=== PATIENT | male | born 1975 | race Caucasian/White ===

== ENCOUNTER 2016-06-05 15:57 | Inpatient (IN) | payer MEDICARE, OTHER ==
--- NOTE | ~2016-06-05 | HP ---
Unit #: [id number] #: [id number] Patient: RANDALL BURT [id number] [place] [address] [id number] I MR#: [id number] NAME: RANDALL BURT ROOM: P184 Age: 41 Sex: M Admission Date: 06/05/2016 : 1975 Attending Physician: Matt Tavera M.D. Admitting Physician: Matt Tavera M.D. Primary Care Physician: Primary Care Physician No HISTORY AND PHYSICAL HISTORY OF PRESENT ILLNESS Randall is a 41-year-old male admitted on 06/05/2016 for detox from alcohol, heroin and meth. PAST MEDICAL HISTORY Crohn's disease. PAST SURGICAL HISTORY 1. Fistula repair x3. 2. Colon resection x1. ALLERGIES No known drug allergies. SOCIAL HISTORY Smokes 1-1/2 packs of cigarettes daily. Drinks a pint of alcohol daily and uses heroin and meth daily. He is currently and living with his friend. FAMILY HISTORY Noncontributory. REVIEW OF SYSTEMS CONSTITUTIONAL: No fever or chills. HEENT: Denies any sore throat, ear pain or runny nose. CARDIOVASCULAR: Denies chest pain, irregular heart rhythm or palpitations. CHEST: Denies shortness of breath or cough. No hemoptysis. GASTROINTESTINAL: Denies nausea, vomiting, diarrhea or chronic constipation. ENDOCRINE: Denies history of increased thirst or urination. No recent significant weight loss or gain. GENITOURINARY: Denies dysuria, frequency, or hematuria. SKIN: Denies any rashes. HEMATOLOGIC: Denies history of increased bleeding or bruising. MUSCULOSKELETAL: Denies any hot, swollen joints. No generalized muscle pain. NEUROLOGIC: Denies problems with vision or speech. No frequent, severe headaches. No numbness, tingling or weakness in any extremities. Denies loss of bladder or bowel control. CURRENT MEDICATIONS Olanzapine. Unit #: [id number] #: [id number] Patient: RANDALL BURT PHYSICAL EXAMINATION GENERAL: Alert, oriented, in no acute distress. VITAL SIGNS: Blood pressure 103/72, heart rate 73, respirations 16. HEIGHT: 5 feet 11. WEIGHT: 178 pounds. SKIN: Warm and dry without rash or lesion. HEENT: Normocephalic. TMs not viewed. Oral and nasal passages clear. Conjunctivae clear. PERRLA. EOMs intact. NECK: Supple without lymphadenopathy or thyromegaly. HEART: Regular rate and rhythm without murmur. LUNGS: Clear. ABDOMEN: Soft, nontender, without masses or hepatosplenomegaly. : Not done. EXTREMITIES: No evidence of cyanosis, clubbing or edema. Moves all without focal deficit. NEUROLOGICAL: Grossly within normal limits. Cranial Nerves: II: Visual soriano are intact. III, IV AND : Extraocular movements are intact. Pupils are equal, round and reactive to light. V: Facial sensation is grossly normal. VII: Facial movements and expression are normal. VIII: Auditory acuity grossly intact. IX, X: Uvula is midline. Phonation is normal. XI: Patient shrugs shoulders and turns head normally. XII: Tongue protrudes in the midline. Sensory and Motor Function: Sensory and motor sensation is grossly normal. Motor: moves all extremities well. Coordination: Gait is normal. Deep Tendon Reflexes: Intact. IMPRESSION 1. Psychiatric admission. 2. Crohn's disease. RECOMMENDATIONS PSYCHIATRIC: Per psychiatrist. MEDICAL: No contraindications to participate in facility's activities. MEDICAL PROGNOSIS Good. MEDICAL CONDITION Stable. Dictated by... Sofia Taveras/fausto TD: 06/06/2016 15:13 JOB #: [id number] Unit #: [id number] #: [id number] Patient: RANDALL BURT HISTORY AND PHYSICAL Page 1 of 1 X NORMAN GRULLON APRN X HISTORY AND PHYSICAL
--- NOTE | ~2016-06-05 | DS ---
Unit #: [id number] #: [id number] [facility] [id number] [facility] [address] [place] [address] [id number] I MR#: [id number] NAME: RANDALL BURT ROOM: P174 Age: 41 Sex: M Admission Date: 06/05/2016 : 1975 Discharge Date: Attending Physician: Matt Tavera M.D. DISCHARGE SUMMARY IDENTIFYING DATA Mr. Burt is a 41-year-old single disabled white male, who is a resident of [place], [place], and is known to us from previous encounter, was self-referred to the hospital on a voluntary basis. DISCHARGE DIAGNOSES Psychiatric: Bipolar disorder, most recent episode depressed, recurrent, moderate, without psychotic features; alcohol dependence, moderate and acute withdrawals; opioid dependence, moderate and acute withdrawals; methamphetamine dependence, moderate. Medical: None. Stressors: Moderate psychosocial stressors. HISTORY OF PRESENT ILLNESS Please see initial psychiatric evaluation for details. PAST PSYCHIATRIC HISTORY Please see initial psychiatric evaluation for details. PAST MEDICAL HISTORY Please see initial psychiatric evaluation for details. HOSPITAL COURSE The patient was admitted to the adult chemical dependency and psychiatric unit at [facility] and was oriented to the hospital environment. Routine p.r.n. medications were initiated, and he was started back on his home medications including his Zyprexa 20 mg at bedtime and detox protocol for alcohol and opioids were initiated and he was closely monitored. He was taking the medications regularly and was tolerating them fairly well and was able to show a decent and therapeutic response with improvement in depression and anxiety and was able to come out of the detox without any complications and was willing to continue treatment on an outpatient basis and as such, it was decided that he will be discharged home and will continue treatment on an outpatient basis. DISCHARGE MEDICATIONS Zyprexa 20 mg at bedtime for bipolar. DISCHARGE CONDITION Stable. PROGNOSIS Fair. Unit #: [id number] #: [id number] Patient: RANDALL BURT Dictated by... Haven De Guzman/brian TD: 06/10/2016 07:15 JOB #: [id number] DISCHARGE SUMMARY Page 1 of 1 X Matt Tavera MD DISCHARGE SUMMARY
--- NOTE | ~2016-06-05 | PN ---
Unit #: [id number] #: [id number] Patient: RANDALL BURT [id number] [facility] [address] [place] [address] [id number] MR#: [id number] NAME: RANDALL BURT ROOM: P174 Age: 41 Sex: M Admission Date: 06/05/2016 : 1975 Attending Physician: Matt Tavera M.D. Admitting Physician: Matt Tavera M.D. Primary Care Physician: Primary Care Physician Tia LANGLEY PROGRESS NOTES DATE OF SERVICE 06/08/2016 DISCUSSION Mr. Burt is a 41-year-old and substance abuse and mood disorder who was seen today. Chart was reviewed and case was discussed with the staff. He was seen to be anxious, restless, withdrawn, and unsteady on his feet and difficult to carry on any meaningful conversation, with poor eye contact, and has not been able to perform activities of daily living or take care of his personal hygiene, and he does not appear to be functioning very well. He has been reporting persistent depression and anxiety, restlessness, and feelings of hopelessness and suicidal thoughts. MENTAL STATUS EXAMINATION Middle-aged white male who is casually dressed with fair personal hygiene, appears to be in slight distress or discomfort. He was awake and alert with impaired attention and concentration. His mood is anxious with congruent affect. His speech is slow and restricted in content. His thought processes were disorganized with some looseness of associations. His insight and judgment remain significantly impaired. TREATMENT PLAN 1. We will continue him on his current medications and treatment protocol. We will monitor his response to the medications and make further adjustments as needed. 2. We will continue to follow up. Dictated by... Haven De Guzman/blaise TD: 06/09/2016 13:13 JOB #: [id number] Unit #: [id number] #: [id number] Patient: RANDALL BURT KORIN PROGRESS NOTES Page 1 of 1 X Matt Tavera MD PROGRESS NOTE
--- NOTE | ~2016-06-05 | PN ---
Unit #: [id number] #: [id number] Patient: RANDALL BURT [id number] [facility] [address] [place] [address] [id number] I MR#: [id number] NAME: RANDALL BURT ROOM: P174 Age: 41 Sex: M Admission Date: 06/05/2016 : 1975 Attending Physician: Matt Tavera M.D. Admitting Physician: Matt Tavera M.D. Primary Care Physician: Primary Care Physician Tia LANGLEY PROGRESS NOTES DATE 06/06/2016 DISCUSSION Mr. Burt is a 41-year-old, white male who was seen today and chart was reviewed and case was discussed with the staff. He was seen to be anxious, withdrawn, depressed and rather seclusive to himself. He was laying in his bed and has not been able to function very well. He has been taking the medication and tolerating them fairly well with no reported side effects. MENTAL STATUS EXAM Middle-aged white male who was casually dressed with fair personal hygiene, appears to be in no acute distress or discomfort. He was awake and alert on interaction with intact orientation. His mood was anxious with congruent affect. He denies any suicidal or homicidal ideation. His insight and judgement remains slightly impaired. TREATMENT PLAN 1. We will continue him on his current medications and treatment protocol. We will monitor his response and make further adjustments as needed. 2. We will continue to follow up. Dictated by... Haven De Guzman/kvng TD: 06/08/2016 00:11 JOB #: [id number] Unit #: [id number] #: [id number] Patient: RANDALL BURT KORIN PROGRESS NOTES Page 1 of 1 X Matt Tavera MD PROGRESS NOTE
--- NOTE | ~2016-06-05 | A ---
[facility] DATE: 06/08/16 Patient: RANDALL BURT Physician: INEZ Address: [address] Room/Bed: [address], Zip: [place] [address] Admit Date: 06/05/16 Date of : [birth year] Height: 5 11 Weight: [phone] NUTRITIONAL ASSESSMENT: REASON: NUTRITION RISK POINT- UNINTENTIONAL WEIGHT LOSS PATIENT ADMITTED FOR DETOX AND SI PMH: CROHN'S DZ, HEP C, FISTULA REPAIR X3, COLON RESECTION X1 Anthropometrics: HT: 5'11, WT: 178#, BMI: 24.8 Labs: 06/08/16- NUTRITIONAL LABS WNL Meds: ZYPREXA, DESYREL, DETOX PROTOCOL Assessment: CHART REVIEWED, EVENTS NOTED. PATIENT IS A 41 Y/O MALE ADMITTED FOR DETOX AND SI. PATIENT IS CURRENTLY ON DISABILITY, HOMELESS, SMOKES 2 PPD, AND HAS DAILY ETOH, HEROIN, AND METH USE. PATIENT ALSO HAS FREQUENT CANNABIS AND SUBOXONE USE. IT IS NOTED THAT PAITENT RELAPSED 4 MONTHS AGO AND HE HAS BEEN NON-COMPLIANT WITH HIS MEDICATIONS. PATIENT STATED A 40# WEIGHT LOSS OVER THE LAST COUPLE OF MONTHS, AND HE SLEEPS AN AVERAGE OF 0-6HRS PER NIGHT. WEIGHT HX IN [facility] SHOWS A WEIGHT OF 215# ON 10/2015, HOWEVER ALL OTHER PREVIOUS WEIGHTS FLUCTUATE FROM 145-180# FOR LAST 10 YEARS. NURSING REPORTS GOOD PO INTAKES. PATIENT HAS A HX OF INPATIENT AND OUTPATIENT CHEMICAL DEPENDENCY TREATMENT. PATIENT IS ON A REGULAR DIET WITH LARGE ENTREES. THERE ARE NO SKIN OR GI ISSUES NOTED ATT. Dx: UNINTENTIONAL WEIGHT LOSS R/T CURRENT CONDITION, DRUG USE AEB SELF-REPORTED WEIGHT LOSS, NUTRITIONAL RISK POINT Intervention: 1. REGULAR DIET, 2. LARGE PORTION ENTREES, 3. MEDS PER MD, 4. DETOX, 5. PSYCH Monitoring, Evaluation and Goals: 1. ADEQUATE PO INTAKES >50% OF MEALS 2. PREVENT, CORRECT MICRO/MACRO NUTRIENT DEFICIENCIES MONITOR: WEIGHTS, LABS, PO/FLUID INTAKES Recommendations: 1. CONTINUE REGULAR DIET TOLERATED 2. ENCOURAGE ADEQUATE PO AND FLUID INTAKES 3. OBTAIN WEIGHTS ROUTINELY (EVERY 3-4 DAYS) RD TO F/U PER PROTOCOL AND PRN R/T PATIENT MILDLY COMPROMISED [facility] DATE: 06/08/16 Patient: RANDALL BURT Physician: INEZ Address: [address] Room/Bed: [address], Zip: [place] [address] Admit Date: 06/05/16 Date of : [birth year] Height: 5 11 Weight: [phone] Respectfully, VERN RENTERIA RD, LD [facility] cc: client file
--- NOTE | ~2016-06-05 | PN ---
Unit #: [id number] #: [id number] Patient: RANDALL CORTES [id number] [facility] [address] [place] [address] [id number] I MR#: [id number] NAME: RANDALL CORTES ROOM: P174 Age: 41 Sex: M Admission Date: 06/05/2016 : 1975 Attending Physician: Matt Tavera M.D. Admitting Physician: Matt Tavera M.D. Primary Care Physician: Primary Care Physician Tia BOOTH NOTES DATE OF SERVICE 06/08/2016 DISCUSSION Mr. Cortes is a 41-year-old white male who was seen today. Chart was reviewed and case was discussed with the staff. He reports feeling better and has been showing improvement in his anxiety and depression and appears to be coming out of the detox without any complications. He has been taking the medication and tolerating them fairly well with no reported side effects. MENTAL STATUS EXAMINATION Middle-aged white male who is casually dressed with fair personal hygiene, appears to be in no acute distress or discomfort. The patient was awake and alert with intact orientation. His mood is anxious with a congruent affect. He denies any suicidal or homicidal ideations. His insight and judgment remain slightly impaired. TREATMENT PLAN 1. We will continue him on his current medications and treatment protocol. We will monitor his response to the medications and make further adjustments as needed. 2. We will continue to follow up. Dictated by... Matt Tavera M.D. IAA/bzg TD: 06/10/2016 10:52 JOB #: [id number] Unit #: [id number] #: [id number] Patient: RANDALL CORTES KORIN PROGRESS NOTES Page 1 of 1 X Matt Tavera MD PROGRESS NOTE
--- NOTE | ~2016-06-05 | PN ---
Unit #: [id number] #: [id number] Patient: RANDALL BURT [id number] [facility] [address] [place] [address] [id number] I MR#: [id number] NAME: RANDALL BURT ROOM: P174 Age: 41 Sex: M Admission Date: 06/05/2016 : 1975 Attending Physician: Matt Tavera M.D. Admitting Physician: Matt Tavera M.D. Primary Care Physician: Primary Care Physician Tia BOOTH NOTES DATE 06/07/2016 DISCUSSION Mr. Burt is a 41-year-old, white male with substance abuse and mood disorder who was seen today and chart was reviewed and case was discussed with the staff. He appears to be anxious, withdrawn and rather seclusive to himself and has been exhibiting bizarre behavior with some cognitive (1) and confusion state of mind. However, agitation and aggression has been noted. He has been taking the medication and tolerating them fairly well with no reported side effects. MENTAL STATUS EXAM Middle-aged white male who was casually dressed with fair personal hygiene, appears to be in no acute distress or discomfort. He was awake and alert on interaction with intact orientation. His mood was anxious with congruent affect. He denies any suicidal or homicidal ideation. Also, denies any auditory or visual hallucinations. His insight and judgement remains slightly impaired. TREATMENT PLAN 1. We will continue him on his current treatment protocol. We will monitor his response and make further adjustments as needed. 2. We will continue to follow up. Dictated by... Haven De Guzman/kvng TD: 06/08/2016 21:07 JOB #: [id number] Unit #: [id number] #: [id number] Patient: RANDALL BURT KORIN PROGRESS NOTES Page 1 of 1 X Matt Tavera MD PROGRESS NOTE
--- NOTE | ~2016-06-05 | PA ---
Unit #: [id number] #: [id number] Patient: RANDALL CORTES [id number] [facility] [address] [place] [address] [id number] I MR#: [id number] NAME: RANDALL CORTES ROOM: P174 Age: 41 Sex: M Admission Date: 06/05/2016 : 1975 Date of Assessment: Attending Physician: Matt Tavera M.D. Admitting Physician: Matt Tavera M.D. PSYCHIATRIC ASSESSMENT DATE OF SERVICE 06/05/2016. IDENTIFYING DATA Mr. Cortes is a 41-year-old single disabled white male, who is a resident of [place], [place], and is known to us from previous encounter and was self-referred to the hospital on a voluntary basis. CHIEF COMPLAINT "Of course when the last time I was here, I did okay for a while and I have been on a relapse for the past 4 months, I was on Suboxone." HISTORY OF PRESENT ILLNESS Mr. Cortes is a 41-year-old white male with history of substance abuse and dependence, who brought himself and stating that he has relapsed and has been using for the last 4 months, "I was on the Suboxone with my doctor and I could not quit either one, Suboxone, meth, heroin; I'm doing them all. I cannot stop any of it, back to square one. I don't want to live anymore, I'm doing amounts trying to . I went out yesterday and a friend brought me back, I was unconscious and they were saying there is more to live for, I need some help, I don't want to live this way anymore and I cannot quit, it is either quit or and I don't want to live this way anymore. I stopped going to meetings and I stopped talking to my sponsor. I have been playing flikdate, drinking a pint daily plus IV meth and heroin." He does report increasing depression, anxiety, irritability, restlessness, feelings of hopelessness and helplessness, and suicidal ideation. SUBSTANCE ABUSE HISTORY The patient reports extensive history of substance abuse including alcohol, cocaine, cannabis, acid, opioids, and methamphetamine, and currently, he has been drinking a pint of liquor a day and has been using heroin and methamphetamine on a regular basis. PAST PSYCHIATRIC HISTORY The patient has had a history of multiple inpatient chemical dependency treatments including being at [facility], [facility], [facility], and other facilities and has done outpatient treatment program. Review of the medical records indicate that currently he is on Zyprexa and has been diagnosed and treated for bipolar disorder. PAST MEDICAL HISTORY The patient's medical history is insignificant. Unit #: [id number] #: [id number] Patient: RANDALL CORTES ALLERGIES Prozac and sulfa drugs. PERSONAL AND SOCIAL HISTORY A 41-year-old white male, who reports that he is single, disabled, and has been staying with different friends and has poor social support system. MENTAL STATUS EXAMINATION Middle-aged white male, who was casually dressed with fair personal hygiene, appears to be in no acute distress or discomfort. He was awake and alert on interaction with intact orientation to time, place, and person. His mood was anxious and depressed with a congruent affect. His speech was slow and restricted in content. His thought processes were disorganized with some looseness of associations and flight of ideas and paranoid ideations and suicidal ideations. His insight and judgment remain significantly impaired. DIAGNOSTIC IMPRESSION Psychiatric: Bipolar disorder, most recent episode depressed, recurrent, moderate, without psychotic features; alcohol dependence, moderate, in acute withdrawals; opioid dependence, moderate, in acute withdrawals; and methamphetamine dependence, moderate. Medical: None. Stressors: Moderate psychosocial stressors. TREATMENT PLAN 1. The patient has presented with a history of substance abuse and mood disorder and has been decompensating and will need inpatient hospitalization for safety and stabilization. We will start him back on his home medications and we will adjust the medications and monitor response. 2. Supportive therapy was provided to the patient. 3. Safe, structured, and nourishing environment will be provided. ESTIMATED LENGTH OF STAY 5 to 7 days. ABILITY TO HELP SELF Limited. WILLINGNESS TO HELP SELF The patient appears to be willing to help self. STRENGTHS 1. Communicative. 2. Cooperative. PROBLEMS 1. Chronic dysphoric symptoms. 2. Poor social support system. DISCHARGE CRITERIA This will be contingent upon the patient's ability to show resolution of his depression and anxiety and his ability to stay safe to himself, particularly after discharge from the hospital. Dictated by... Unit #: [id number] #: [id number] Patient: JAVEDRANDALL M.D. IAA/brian TD: 06/06/2016 10:59 JOB #: [id number] PSYCHIATRIC ASSESSMENT Page 1 of 1 X Matt Tavera MD PSYCHIATRIC ASSESSMENT
[~2016-06-05 15:57] MED LIST: ADDERALL; ADDERALL 30 MG30 M1 PO; ADDERALL PO; ASACOL400 MG PO; AZULFIDINE PO; BACTRIM DS TABL1 TA1; BACTRIM DS TABL1 TA1 PO; BACTRIM DS TABL1 TA2 PO; BENTYL20 MG PO; CIPRO PO; CIPRO250 MG; COLACE PO; COMBIVENT U/D3 M2 INH; DICLOFENAC PO; DOXYCYCLINE PO; ENTOCORT EC3 MG PO; ERYC250 MG PO; FLAGYL PO; IMODIUM2 MG PO; IMURAN50 MG PO; LEVAQUIN PO; LORTAB 10-5001 EACH PO; LORTAB 5/500 TA1 TA1 PO; LORTAB 5/500 TA1 TA2 PO; MEDROL DOSEPAK4 MG DOB; PERCOCET 10/6501 TA1 PO; PERCOCET PO; PHENERGAN PO; PHENERGAN12.5 MG PO; PHENERGAN25 MG PO; PREDNISONE PO; PREDNISONE10 MG; PREDNISONE10 MG PO; RITALIN PO; SIMETHICONE GA125 MG PO; SULFASALAZINE500 M1 PO; VIBRAMYCIN100 M1 PO; VIT B-12 PO; XANAX2 MG PO; ZOFRAN PO; ZYLOPRIM PO; ZYPREXA PO; ZYPREXA20 MG PO; [UNRECOGNIZED DRUG - OTHER]
[2016-06-08 09:33] LABS: BASOPHIL% 0.5 % (0-2.5); EOSINOPHIL% 0.3 % (0.0-7.0); HEMOGLOBIN 14.3 gm/dL (13.0-16.0); LYMPHOCYTE# 2.9 X10e3 (1.0-3.5); LYMPHOCYTE% 31.2 % (17.0-45.0); MEAN CELL VOLUME 90.5 FL (83-96); MEAN CORPUSCULAR HEMOGLOBIN 29.4 PG (28-34); MEAN CORPUSCULAR HGB CONC 32.5 g/dL (30-36); MEAN PLATELET VOLUME 9.2 FL (6.5-11.5); MONOCYTE# 0.5 X10e3 (0-1.0); MONOCYTE% 4.9 % (3.0-12.0); NEUTROPHIL# 5.9 X10e3 (1.5-7.1); NEUTROPHIL% 63.1 % (40-75); PLATELET COUNT 294 X10e3 (140-420); RED BLOOD COUNT 4.86 X10e (3.90-5.60); RED CELL DISTRIBUTION WIDTH 14.8 % (11.0-15.5); WHITE BLOOD COUNT 9.4 X10e3 (4.0-10.5)
[2016-06-08 09:42] LABS: DIFF IND NO
[2016-06-08 09:51] LABS: ALBUMIN SERUM 3.4 g/dL (3.5-5.0); BILIRUBIN,TOTAL 0.4 mg/dL (0.2-2.0); BUN/CREATININE RATIO 12.85; CALCIUM SERUM 9.3 mg/dL (8.4-10.2); CREATININE SERUM 0.7 mg/dL (0.6-1.4); GLOM FILT RATE Estimated 117.3 mL/min (>60); POTASSIUM 4.2 mmol/L (3.5-5.1); PROTEIN TOTAL SERUM 6.6 g/dL (6.0-8.3)
[2016-06-09 10:12] LABS: URINE APPEARANCE CLEAR; URINE BILIRUBIN NEG (NEG); URINE BLOOD NEG (NEG); URINE COLOR DK YELLOW; URINE GLUCOSE NEG (NEG); URINE KETONE NEG (NEG); URINE LEUKOCYTE ESTERASE NEG (NEG); URINE NITRATE NEG (NEG); URINE PH 5.5 (5-8); URINE PROTEIN NEG (NEG); URINE SPECIFIC GRAVITY 1.018 (1.003-1.035); URINE UROBILINOGEN 0.2 MG/DL (NEG)
[2016-06-09 10:33] LABS: AMPHETAMINE NEG (NEG); BARBITURATES NEG (NEG); BENZODIAZEPINES POS (NEG); COCAINE NEG (NEG); MARIJUANA NEG (NEG); OPIATES NEG (NEG); TRICYCLIC ANTIDEPRESSANTS NEG (NEG); U METHADONE NEG (NEG)
== END 2016-06-10 09:30 | DRG 885 ==
LOC: P1E 15:57 → POF 06-07 00:42 → P1E 06-07 00:43
PROVIDERS: Psychiatry & Neurology Psychiatry
PROC: HZ2ZZZZ Detoxification Services for Substance Abuse Treatment (ICD-10-PCS; principal; 2016-06-05)
DX: F31.32 Bipolar disorder, current episode depressed, moderate (principal); K50.90 Crohn's disease, unspecified, without complications; F10.239 Alcohol dependence with withdrawal, unspecified; F11.23 Opioid dependence with withdrawal; F15.23 Other stimulant dependence with withdrawal; F17.210 Nicotine dependence, cigarettes, uncomplicated
CPT/HCPCS: 80053; 80307; 81003; 85025; 86592